=== PATIENT | male | born 1955 | race Hispanic/Latino ===

== ENCOUNTER 2024-09-01 21:37 | Emergency (ER) | payer OTHER, MEDICARE ==
--- OUTSIDE RECORDS SUMMARY | 2024-09-01 21:40 | XMS REPORT | Clinical Summary ---
Author Name Unknown Organization [facility] [place] Address [address] [place] [address] Care Team Providers Care Log Cooker Name Role Phone Lorne Echevarria MD Unavailable Sinan Arias MD Primary Care Provider [phone] Allergies No known active allergies Medications No known medications Active Problems No known active problems Social History Tobacco Use Types Packs/Day Years Used Date Smoking Tobacco: Never Smokeless Tobacco: Never Tobacco Cessation:Counseling Given: Not Answered Sex and Gender Information Value Date Recorded Sex Assigned at Not on file 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 Gender Identity Not on file Sexual Orientation Not on file Obstetrics History Plan of Treatment Health Maintenance Due Date Last Done Comments Pneumococcal Vaccine: 65+ Ye ars (2 of 2 - PCV) 08/07/2020 08/07/2019 COVID-19 Vaccine ( season) 2024, 12/15/2020 Influenza Vaccine (#1) 2024 Insurance MEDICARE PART A AND B AARP-SECONDARY ONLY MEDICARE PART A AND B AARP-SECONDARY ONLY Care Teams Log Cooker Relationship Specialty [place] [address] [place] [address] PCP - External Referring Dermatology 11/07/22 Sinan Arias MD [address] [place] [address] [email or web address] PCP - General Dermatology 11/13/22
[2024-09-01 23:55] LABS: Absolute Basophils 0.1 K/uL (0-0.5); Absolute Eosinophils 0.1 K/uL (0-0.5); Absolute Lymphocytes (CBC) 1.4 K/uL (0.7-4.9); Absolute Monocytes 1.5 K/uL (0.1-1.3); Absolute Neutrophil 13.9 K/uL (1.8-8.0); Basophils % 0.5 % (0-1.3); Eosinophils % 0.7 % (0-4.4); Hematocrit 36.5 % (39.6-49.0); Hemoglobin 12.2 g/dL (13.6-17.9); Lymphocytes % 8.3 % (15.3-44.8); MCH 29.5 pg (27.0-35.0); MCHC 33.4 g/dL (32.0-36.0); MCV 88.3 fL (80-100); MPV 7.5 fL (7.6-11.3); Monocytes % 8.9 % (3.3-12.3); Neutrophils % 81.6 % (41.7-73.7); Platelets 274 thou/uL (152-406); RBC Red Blood Cell Count 4.14 M/uL (4.33-5.43); Red Cell Distribution Width 13.5 % (12.1-15.2)
[2024-09-01 23:57] LABS: Specific Gravity 1.013 (1.005-1.030); Sqamous Epithelial <5 /HPF (None Seen); Urine Bacteria <20 /HPF (<20); Urine Bilirubin NEGATIVE (Negative); Urine Blood 1+ (Negative); Urine Clarity Extremely Turbid (Clear); Urine Color Yellow (Yellow); Urine Culture Reflex Order REFLEXED; Urine Glucose NEGATIVE (Negative); Urine Ketones NEGATIVE (Negative); Urine Microscopic Reflex YN ORDER UMIC; Urine Nitrite NEGATIVE (Negative); Urine Protein 1+ (Negative); Urine Urobilinogen 1+ (Normal); Urine WBC >50 /HPF (<5); Urine WBC Clump Occasional /HPF (None Seen)
[2024-09-02 00:10] LABS: Albumin 3.4 g/dL (3.4-5.0); Albumin/Globulin Ratio 0.9 (1.1-1.8); Anion Gap 9.3 mEq/L (5.0-15.0); Bilirubin Total 0.9 mg/dL (0.2-1.0); Globulin 3.7 g/dL (2.3-3.5); Potassium 3.3 mEq/L (3.5-5.1); Protein, Total 7.1 g/dL (6.4-8.2)
[2024-09-02] MEDS ORDERED: Levofloxacin500mg IV 500 MG/100 ML BAG IV ONE (00:29)
[2024-09-02] MEDS ORDERED: NA CHLORIDE 0.9% 1,000 ML ONE (00:29)
--- NOTE | 2024-09-02 01:20 | ER ---
Nurse's Notes [facility] Name: Mike Enciso Age: 69 yrs Sex: Male : 1955 Arrival Date: 09/01/2024 Time: 21:37 Bed 14 Private MD: Diagnosis: UTI/ Urinary tract infection, site not specified Presentation: 09/01 22:12 Chief complaint: Spouse and/or significant other states: He was here 3 months ago with vc1 the same symptoms. He had a UTI and they placed a quan. They just removed the quan 3 weeks ago. Now he can't pee again and was running a 101.1 fever. Coronavirus screen: Client denies travel out of the [place] in the last 14 days. At this time, the client does not indicate any symptoms associated with coronavirus-19. Ebola Screen: Patient negative for fever greater than or equal to 101.5 degrees Fahrenheit, and additional compatible Ebola Virus Disease symptoms Patient denies exposure to infectious person. Patient denies travel to an Ebola-affected area in the 21 days before illness onset. No symptoms or risks identified at this time. Initial Sepsis Screen: Does the patient meet any 2 criteria? No. Patient's initial sepsis screen is negative. Does the patient have a suspected source of infection? No. Patient's initial sepsis screen is negative. Risk Assessment: Do you want to hurt yourself or someone else? Patient reports no desire to harm self or others. Onset of symptoms was September 01, 2024. 22:12 Method Of Arrival: Wheelchair vc1 22:12 Acuity: DARIAN 3 vc1 Triage Assessment: 22:19 General: Appears in no apparent distress. uncomfortable, slender, well groomed, well vc1 developed, well nourished, Behavior is calm, cooperative, flat. Pain: Complains of pain in suprapubic area Pain does not radiate. Pain currently is 6 out of 10 on a pain scale. Quality of pain is described as pressure, Is continuous. EENT: No deficits noted. No signs and/or symptoms were reported regarding the EENT system. Neuro: Level of Consciousness is awake, alert, obeys commands, Oriented to person, place, time, situation, Appropriate for age. Cardiovascular: No deficits noted. Respiratory: Airway is patent Respiratory effort is even, unlabored, Respiratory pattern is regular, symmetrical, Breath sounds are clear bilaterally. GI: Abdomen is flat, non-distended, Abd is soft Abdomen is tender to palpation in suprapubic area. : Bladder is distended Reports inability to void. Derm: Skin is intact, is healthy with good turgor, Skin is dry, Skin is normal, Skin temperature is warm. Musculoskeletal: Circulation, motion, and sensation intact. Range of motion: intact in all extremities. Historical: - Allergies: 22:17 No Known Allergies; vc1 - PMHx: 22:17 peripheral neuropathy; urinary retention; vc1 - PSHx: 22:17 procedure for urinary retention; vc1 - Immunization history:: Client reports receiving the 2nd dose of the Covid vaccine, Flu vaccine is not up to date. - Infectious Disease History:: Denies. - Social history:: Smoking status: Patient denies any tobacco usage or history of. Screenin:18 [facility] ED Fall Risk Assessment (Adult) History of falling in the last 3 months, vc1 including since admission No falls in past 3 months (0 pts) Confusion or Disorientation Yes (5 pts) Intoxicated or Sedated Impaired Gait Yes (1 pt) Mobility Assist Device Used Yes (1 pt) Altered Elimination Yes (1 pt) Score/Fall Risk Level 3 or more points = High Risk Oriented to surroundings, Maintained a safe environment, Educated pt \T\ family on fall prevention, incl call for assistance when getting out of bed, Hourly rounding (assess needs \T\ fall precautionary measures) done, Utilized family, sitter, or virtual automotive maintenance technician as indicated. Abuse screen: Denies threats or abuse. Nutritional screening: No deficits noted. Tuberculosis screening: No symptoms or risk factors identified. Assessment: 22:00 General: Appears in no apparent distress. comfortable, Behavior is calm, cooperative, jb4 appropriate for age. Pain: Complains of pain in suprapubic area Pain does not radiate. Pain currently is 6 out of 10 on a pain scale. Neuro: Level of Consciousness is awake, alert, obeys commands, Oriented to person, place, time, situation. Cardiovascular: Patient's skin is warm and dry. Respiratory: Airway is patent Respiratory effort is even, unlabored, Respiratory pattern is regular, symmetrical. Derm: Skin is intact, Skin is pink, warm \T\ dry. Musculoskeletal: Circulation, motion, and sensation intact. Range of motion: intact in all extremities. 23:00 Reassessment: Patient appears in no apparent distress at this time. Patient and/or jb4 family updated on plan of care and expected duration. Pain level reassessed. Patient is alert, oriented x 3, equal unlabored respirations, skin warm/dry/pink. 09/02 00:00 Reassessment: Patient appears in no apparent distress at this time. Patient and/or jb4 family updated on plan of care and expected duration. Pain level reassessed. Patient is alert, oriented x 3, equal unlabored respirations, skin warm/dry/pink. 01:00 Reassessment: Patient appears in no apparent distress at this time. Patient and/or jb4 family updated on plan of care and expected duration. Pain level reassessed. Patient is alert, oriented x 3, equal unlabored respirations, skin warm/dry/pink. 01:38 Reassessment: D/c pending completion of IV fluids. jb4 Vital Signs: 09/01 22:00 BP 135 / 72; Pulse 82; Resp 16; Pulse Ox 96% on R/A; jb4 22:12 BP 140 / 74; Pulse 83; Resp 18; Temp 99.1; Pulse Ox 98% ; Weight 89.81 kg; Height 5 ft. vc1 8 in. ; Pain 6/10; 23:46 BP 122 / 70; Pulse 73; Resp 16; Pulse Ox 96% on R/A; jb4 09/02 01:00 BP 129 / 65; Pulse 78; Resp 16; Pulse Ox 96% on R/A; jb4 02:17 BP 133 / 73; Pulse 93; Resp 16; Temp 99.3(O); Pulse Ox 98% on R/A; jb4 09/01 22:12 Body Mass Index 30.11 (89.81 kg, 172.72 cm) vc1 22:12 Pain Scale: Adult vc1 ED Course: 09/01 21:39 Patient arrived in ED. mr 21:42 [facility] sb4 21:42 Scott Gamboa MD is Attending Physician. sb4 22:17 Triage completed. vc1 22:18 Arm band placed on right wrist. vc1 22:19 Patient has correct armband on for positive identification. Bed in low position. Call vc1 light in reach. Adult w/ patient. Pulse ox on. NIBP on. 23:05 CBC with Diff Sent. jb4 23:05 CMP Sent. jb4 23:46 Vincent Farrell, RN is Primary Nurse. jb4 09/02 01:19 Kayden Piedra MD is Referral Physician. sb4 02:16 No provider procedures requiring assistance completed. IV discontinued, intact, jb4 bleeding controlled, No redness/swelling at site. Pressure dressing applied. Administered Medications: 00:15 CANCELLED (Physician Discretion): [id number] mg 200 ml IVPB once over 60 mins sb4 00:33 Drug: levofloxacin IVPB 500 mg 100 ml IVPB once over 60 mins Volume: 100 ml; Route: jb4 IVPB; Infused Over: 60 mins; Site: right antecubital; 01:33 Follow up: Response: No adverse reaction; IV Status: Completed infusion; IV Intake: jb4 100ml 00:33 Drug: NS 0.9% IV 1000 ml IV at 1 bolus Per protocol; to be given as a bolus over 60 jb4 minutes Route: IV; Rate: 1 bolus; Site: right antecubital; 02:17 Follow up: Response: No adverse reaction; IV Status: Completed infusion; IV Intake: jb4 1000ml Medication: 09/01 22:20 VIS not applicable for this client. vc1 Intake: 09/02 01:33 IV: 100ml; Total: 100ml. jb4 02:17 IV: 1000ml; Total: 1100ml. jb4 Outcome: 01:19 Discharge ordered by . sb4 02:16 Discharged to home ambulatory, with family, jb4 02:16 Condition: stable 02:16 Discharge instructions given to patient, Instructed on discharge instructions, follow up and referral plans. medication usage, straight cath setup and insertion Demonstrated understanding of instructions, follow-up care, medications, straight cath set up and insertion Prescriptions given X 1, 02:17 Patient left the ED. jb4 Signatures: Teresa Eldridge, Matias Salcedo mr Vincent Farrell, RN RN jb4 Delia June RN RN vc1 Yue Steen PA-C PA-C sb4
--- NOTE | 2024-09-02 01:20 | EDPHYS ---
Physician Documentation [facility] Name: Mike Enciso Age: 69 yrs Sex: Male : 1955 Arrival Date: 09/01/2024 Time: 21:37 Bed 14 Private MD: ED Physician Scott Gamboa HPI: 09/01 22:51 This 69 yrs old Male presents to ER via Wheelchair with complaints of Fever, sb4 Urinary Problem, confusion. 22:51 reports confusion, lower abdominal pain, and fever since yesterday. States that sb4 symptoms are similar to when he had urinary retention and a UTI. States that he had this happen a few months ago and required indwelling Sauceda catheter and antibiotics through PICC line. States that he has been urinating, just small amounts. Denies any nausea or vomiting. Historical: - Allergies: 22:17 No Known Allergies; vc1 - PMHx: 22:17 peripheral neuropathy; urinary retention; vc1 - PSHx: 22:17 procedure for urinary retention; vc1 - Immunization history:: Client reports receiving the 2nd dose of the Covid vaccine, Flu vaccine is not up to date. - Infectious Disease History:: Denies. - Social history:: Smoking status: Patient denies any tobacco usage or history of. ROS: 22:51 Skin: Negative for injury, rash, and discoloration, sb4 22:51 Constitutional: Positive for fever, 22:51 Abdomen/GI: Positive for abdominal pain, 22:51 : Positive for pelvic pain, small amounts, 22:51 All other systems are negative, Exam: 22:51 Constitutional: This is a well developed, well nourished patient who is awake, alert, sb4 and in no acute distress. Head/Face: Normocephalic, atraumatic. Eyes: Extra-ocular motions intact. Periorbital areas with no swelling, redness, or edema. ENT: Mucous membranes moist. Cardiovascular: Regular rate and rhythm with a normal S1 and S2. Respiratory: No increased work of breathing, no retractions or nasal flaring. Abdomen/GI: Soft, non-tender, no distension. Skin: Warm, dry with normal turgor. Normal color with no rashes, no lesions, and no evidence of cellulitis. Vital Signs: 22:00 BP 135 / 72; Pulse 82; Resp 16; Pulse Ox 96% on R/A; jb4 22:12 BP 140 / 74; Pulse 83; Resp 18; Temp 99.1; Pulse Ox 98% ; Weight 89.81 kg; Height 5 ft. vc1 8 in. ; Pain 6/10; 23:46 BP 122 / 70; Pulse 73; Resp 16; Pulse Ox 96% on R/A; jb4 12 01:00 BP 129 / 65; Pulse 78; Resp 16; Pulse Ox 96% on R/A; jb4 02:17 BP 133 / 73; Pulse 93; Resp 16; Temp 99.3(O); Pulse Ox 98% on R/A; jb4 09/01 22:12 Body Mass Index 30.11 (89.81 kg, 172.72 cm) vc1 22:12 Pain Scale: Adult vc1 MDM: 09/01 21:55 Medical Screening Exam initiated sb4 09/02 00:55 Data reviewed: vital signs, nurses notes, lab test result(s), radiologic studies, and sb4 as a result, I will discharge patient. Counseling: I had a detailed discussion with the patient and/or guardian regarding the historical points, exam findings, and any diagnostic results supporting the discharge/admit diagnosis, lab results, to return to the emergency department if symptoms worsen or persist or if there are any questions or concerns that arise at home. 01:18 ED course: symptoms have improved. Vital signs are stable. Prior urine culture grew E. sb4 coli ESBL and he did require PICC line with IV antibiotic therapy. Will try patient on levofloxacin outpatient and will send for culture. Informed patient that we will call with any abnormal urine culture results but he is to return for any new or worsening symptoms or for any urinary retention. states they do have supplies at home to straight cath if urinary retention occurs as he has a history of this issue. Reiterated the importance of clean and sterile conditions while using the straight cath in order to prevent any further infection. 09/01 22:10 Order name: CBC with Diff; Complete Time: 23:58 sb4 09/01 22:10 Order name: CMP; Complete Time: 00:14 sb4 09/01 22:10 Order name: Urinalysis w/ reflexes; Complete Time: 23:58 sb4 09/02 00:01 Order name: Urine Culture EDDE 09/01 22:10 Order name: IV Saline Lock; Complete Time: 23:05 sb4 09/01 22:10 Order name: Labs collected and sent; Complete Time: 23:05 sb4 09/01 22:10 Order name: Bladder Scanner; Complete Time: 23:46 sb4 Administered Medications: 00:15 CANCELLED (Physician Discretion): [id number] mg 200 ml IVPB once over 60 mins sb4 00:33 Drug: levofloxacin IVPB 500 mg 100 ml IVPB once over 60 mins Volume: 100 ml; Route: jb4 IVPB; Infused Over: 60 mins; Site: right antecubital; 01:33 Follow up: Response: No adverse reaction; IV Status: Completed infusion; IV Intake: jb4 100ml 00:33 Drug: NS 0.9% IV 1000 ml IV at 1 bolus Per protocol; to be given as a bolus over 60 jb4 minutes Route: IV; Rate: 1 bolus; Site: right antecubital; 02:17 Follow up: Response: No adverse reaction; IV Status: Completed infusion; IV Intake: jb4 1000ml Disposition: 01:38 Co-signature as Attending Physician, Scott Gamboa MD I reviewed the patient's care rt provided by the Advanced Practice Provider and agree with the diagnosis and treatment plan. Disposition Summary: 09/02/24 01:19 Discharge Ordered Notes: Location: Home sb4 Problem: new sb4 Symptoms: have improved sb4 Condition: Stable sb4 Diagnosis - UTI/ Urinary tract infection, site not specified sb4 Followup: sb4 - With: Kayden Piedra MD - When: 2 - 3 days - Reason: Recheck today's complaints, Re-evaluation by your physician Followup: sb4 - With: Emergency Department - When: As needed - Reason: Fever > 102 F, Worsening of condition Discharge Instructions: - Discharge Summary Sheet sb4 - Urinary Tract Infection, Adult, [id number]-he-[id number] sb4 Forms: - Antibiotic Education sb4 - Patient Portal Instructions sb4 - Leadership Thank You Letter sb4 Prescriptions: - levofloxacin 500 mg Oral tablet - take 1 tablet ORAL route once daily for 5 days; 5 tablet; Refills: 0, Product sb4 Selection Permitted Signatures: Dis[facility] Vincent Farrell RN RN jb4 Delia June RN RN vc1 Yue Steen PA-C PA-C sb4 Scott Gamboa MD MD rt Corrections: (The following items were deleted from the chart) 09/01 22: 22:11 CBC+H.LAB.BRZ ordered. EDMS EDMS 22:11 COMPREHENSIVE METABOLIC PANEL+C.LAB.BRZ ordered. EDMS EDMS 22:11 Urinalysis+U.LAB.BRZ ordered. EDMS EDMS 09/02 00:15 00:15 Ciprofloxacin IVPB 400 mg 200 ml IVPB once over 60 mins ordered. sb4 sb4
[2024-09-02 02:27] VITALS: BP 133/73; TEMP 99.3; O2SAT 98
== END 2024-09-02 02:17 | disposition home or self-care (01) ==
LOC: ER 21:37
DX: N39.0 Urinary tract infection, site not specified (principal)
CPT/HCPCS: 96365; 96361; 87088; 85025; 81001; 87086; 36415; 80053; 99284; J7030; 87077; 87186

== ENCOUNTER 2024-10-22 15:08 | Emergency (ER) | payer OTHER, MEDICARE ==
--- OUTSIDE RECORDS SUMMARY | 2024-10-22 15:10 | XMS REPORT | Clinical Summary ---
Author Name Unknown Organization [facility] [place] Address [address] [place] [address] Care Team Providers Care Auto Body Mechanic Name Role Phone Lorne Echevarria MD Unavailable [phone] Sinan Arias MD Primary Care Provider [phone] Allergies No known active allergies Medications No known medications Active Problems No known active problems Social History Tobacco Use Types Packs/Day Years Used Date Smoking Tobacco: Never Smokeless Tobacco: Never Tobacco Cessation:Counseling Given: Not Answered Sex and Gender Information Value Date Recorded Sex Assigned at Not on file 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 [place] [address] PCP - External Referring Dermatology 11/07/22 Sinan Arias MD [address] [place] [address] [email or web address] PCP - General Dermatology 11/13/22
[2024-10-22 16:26] LABS: Absolute Basophils 0.1 K/uL (0-0.5); Absolute Eosinophils 0.1 K/uL (0-0.5); Absolute Lymphocytes (CBC) 1.4 K/uL (0.7-4.9); Absolute Neutrophil 8.7 K/uL (1.8-8.0); Basophils % 0.6 % (0-1.3); Hematocrit 39.6 % (39.6-49.0); Hemoglobin 13.2 g/dL (13.6-17.9); Lymphocytes % 12.5 % (15.3-44.8); MCH 29.4 pg (27.0-35.0); MCHC 33.4 g/dL (32.0-36.0); MCV 88.1 fL (80-100); MPV 7.8 fL (7.6-11.3); Monocytes % 8.6 % (3.3-12.3); Neutrophils % 77.3 % (41.7-73.7); Nucleated Red Blood Cells % 0.1 % (0-0); Platelets 255 thou/uL (152-406); Red Cell Distribution Width 14.8 % (12.1-15.2)
[2024-10-22 16:34] LABS: Specific Gravity 1.015 (1.005-1.030); Sqamous Epithelial None Seen /HPF (None Seen); Urine Bacteria <20 /HPF (<20); Urine Bilirubin NEGATIVE (Negative); Urine Blood 3+ (OVER) (Negative); Urine Clarity Extremely Turbid (Clear); Urine Culture Reflex Order REFLEXED; Urine Glucose NEGATIVE (Negative); Urine Ketones NEGATIVE (Negative); Urine Microscopic Reflex YN ORDER UMIC; Urine Nitrite NEGATIVE (Negative); Urine Protein 3+ (Negative); Urine RBC >50 /HPF (None Seen); Urine Urobilinogen Normal (Normal); Urine WBC >50 /HPF (<5); Urine pH 7.5 (5.0-7.0)
[2024-10-22 16:36] LABS: Urine Color Red (Yellow)
[2024-10-22 16:46] LABS: Albumin 3.6 g/dL (3.4-5.0); Albumin/Globulin Ratio 1.1 (1.1-1.8); Anion Gap 9.9 mEq/L (5.0-15.0); Bilirubin Total 0.6 mg/dL (0.2-1.0); Globulin 3.4 g/dL (2.3-3.5)
[2024-10-22 16:47] LABS: Magnesium 2.2 mg/dL (1.6-2.4); Potassium 3.9 mEq/L (3.5-5.1)
[2024-10-22] MEDS ORDERED: CEFTRIAXONE 2000 MG/VIAL ONE (16:49)
[2024-10-22] MEDS ORDERED: NA CHLORIDE 0.9% 50 ML ONE (16:50)
[2024-10-22] MEDS ORDERED: Levofloxacin500mg IV 500 MG/100 ML BAG IV ONE (16:57)
--- NOTE | 2024-10-22 17:26 | ER ---
Nurse's Notes [facility] Name: Mike Enciso Age: 69 yrs Sex: Male : 1955 Arrival Date: 10/22/2024 Time: 15:08 Bed 5 Private MD: Diagnosis: Hematuria, unspecified;UTI/ Urinary tract infection, site not specified Presentation: 10/22 15:13 Chief complaint: Patient states: Blood in urine, urgency and frequency that started rs5 this morning. Coronavirus screen: At this time, the client does not indicate any symptoms associated with coronavirus-19. Ebola Screen: No symptoms or risks identified at this time. Initial Sepsis Screen: Does the patient meet any 2 criteria? No. Patient's initial sepsis screen is negative. Does the patient have a suspected source of infection? No. Patient's initial sepsis screen is negative. Risk Assessment: Do you want to hurt yourself or someone else? Patient reports no desire to harm self or others. Onset of symptoms was October 22, 2023. 15:13 Method Of Arrival: Wheelchair rs5 15:13 Acuity: DARIAN 3 rs5 Historical: - Allergies: 15:16 No Known Allergies; rs5 - PMHx: 15:16 urinary retention; peripheral neuropathy; rs5 - PSHx: 15:16 procedure for urinary retention; rs5 - Immunization history:: Adult Immunizations up to date. - Infectious Disease History:: Denies. - Social history:: Smoking status: Patient denies any tobacco usage or history of. Screenin:[facility] ED Fall Risk Assessment (Adult) History of falling in the last 3 months, tm6 including since admission No falls in past 3 months (0 pts) Confusion or Disorientation No (0 pts) Intoxicated or Sedated No (0 pts) Impaired Gait No (0 pts) Mobility Assist Device Used No (0 pt) Altered Elimination No (0 pt) Score/Fall Risk Level 0 - 2 = Low Risk Oriented to surroundings, Maintained a safe environment, Educated pt \T\ family on fall prevention, incl call for assistance when getting out of bed. Abuse screen: Denies threats or abuse. Denies injuries from another. Nutritional screening: No deficits noted. Tuberculosis screening: No symptoms or risk factors identified. Assessment: 15:30 General: Appears in no apparent distress. Behavior is calm, cooperative. Pain: Denies tm6 pain. Neuro: Level of Consciousness is awake, alert, obeys commands, Oriented to person, place, time, situation. Cardiovascular: Patient's skin is warm and dry. Respiratory: Airway is patent Respiratory effort is even, unlabored, Respiratory pattern is regular, symmetrical. GI: No signs and/or symptoms were reported involving the gastrointestinal system. Abdomen is round non-distended. : Reports urgency, urinary frequency, blood in urine. EENT: No signs and/or symptoms were reported regarding the EENT system. Derm: No signs and/or symptoms reported regarding the dermatologic system. Musculoskeletal: No signs and/or symptoms reported regarding the musculoskeletal system. 16:46 Reassessment: bladder scan post void 70 mL. ld1 17:02 Reassessment: Patient and/or family updated on plan of care and expected duration. Pain tm6 level reassessed. Patient is alert, oriented x 3, equal unlabored respirations, skin warm/dry/pink. 17:27 Reassessment: discharge pending completion of IV antibiotics. tm6 18:06 Reassessment: Patient and/or family updated on plan of care and expected duration. Pain tm6 level reassessed. Patient is alert, oriented x 3, equal unlabored respirations, skin warm/dry/pink. Vital Signs: 15:13 BP 132 / 70; Pulse 74; Resp 17; Pulse Ox 97% on R/A; rs5 17:02 BP 130 / 73; Pulse 73; Temp 98.5(O); Pulse Ox 97% on R/A; MAP 90 mmHg; Pain 0/10; tm6 18:06 BP 146 / 92; Pulse 77; Resp 17; Temp 98.5; Pulse Ox 99% on R/A; MAP 107 mmHg; Pain 0/10;tm6 17:02 Pain Scale: Adult tm6 18:06 Pain Scale: Adult tm6 ED Course: 15:09 Patient arrived in ED. mr 15:11 Franck Ponce MD is Attending Physician. bo1 15:16 Triage completed. rs5 15:21 Greg Castillo RN is Primary Nurse. tm6 15:30 Patient has correct armband on for positive identification. Bed in low position. Call tm6 light in reach. Side rails up X 1. Provided Education on: use of call cueto. Client placed on continuous cardiac and pulse oximetry monitoring. NIBP monitoring applied. Pulse ox on. NIBP on. Door closed. Noise minimized. 16:18 Inserted saline lock: 20 gauge in right antecubital area, using aseptic technique. tm6 Blood collected. Flushed with 10 mL NS. 16:19 Magnesium Sent. tm6 16:19 CBC with Diff Sent. tm6 16:19 CMP Sent. tm6 16:19 Urinalysis w/ reflexes Sent. tm6 18:06 No provider procedures requiring assistance completed. IV discontinued, intact, tm6 bleeding controlled, No redness/swelling at site. Pressure dressing applied. 18:07 Arm band placed on. tm6 Administered Medications: 16:54 Not Given (Physician Discretion): rocephin2 grams IV at bolus once; Given slow IV push tm6 per [employer] instructions 17:02 Drug: levofloxacin IVPB 500 mg 100 ml IVPB once over 60 mins Volume: 100 ml; Route: tm6 IVPB; Infused Over: 60 mins; Site: right antecubital; 18:06 Follow up: Response: No adverse reaction; IV Status: Completed infusion; IV Intake: tm6 100ml Medication: 15:30 VIS not applicable for this client. tm6 Intake: 18:06 IV: 100ml; Total: 100ml. tm6 Outcome: 17:26 Discharge ordered by . bo1 18:06 Discharged to home via wheelchair, with family, tm6 18:06 Condition: stable 18:06 Discharge instructions given to patient, family, Instructed on discharge instructions, follow up and referral plans. medication usage, Demonstrated understanding of instructions, follow-up care, medications, Prescriptions given X 1, 18:07 Patient left the ED. tm6 Addendum: 10/24/2024 07:19 Addendum: Culture Results: Positive urine culture. No further action required. Bacteria e b sensitive to prescribed antibiotic. Signatures: Teresa Eldridge, Matias Salcedo mr StoutKatelyn Lauren, RN RN ld1 Buzz Jennings, SHERWIN RN rs5 Greg Castillo RN RN tm6 Rosario, MD TAMIA Juárez bo1
--- NOTE | 2024-10-22 17:26 | EDPHYS ---
Physician Documentation [facility] Name: Mike Enciso Age: 69 yrs Sex: Male : 1955 Arrival Date: 10/22/2024 Time: 15:08 Bed 5 Private MD: ED Physician Franck Ponce HPI: 10/22 15:44 This 69 yrs old Male presents to ER via Wheelchair with complaints of Urinary bo1 Problem. 15:44 Blood in the urine since 5am today. Onset: The symptoms/episode began/occurred bo1 suddenly, this morning. Severity of symptoms: At their worst the symptoms were mild. The patient has not experienced similar symptoms in the past. No prior hx or cause. 17:08 Pt's spouse is historian as well. bo1 Historical: - Allergies: 15:16 No Known Allergies; rs5 - PMHx: 15:16 urinary retention; peripheral neuropathy; rs5 - PSHx: 15:16 procedure for urinary retention; rs5 - Immunization history:: Adult Immunizations up to date. - Infectious Disease History:: Denies. - Social history:: Smoking status: Patient denies any tobacco usage or history of. ROS: 17:06 Constitutional: Negative for fever, chills, and weight loss bo1 17:06 Constitutional: Positive for Nightly sweats for the past 6 months, Negative for chills, fever, 17:06 Cardiovascular: Negative for chest pain, 17:06 Respiratory: Negative for cough, shortness of breath, 17:06 Abdomen/GI: Negative for abdominal pain, nausea and vomiting, 17:06 : Positive for hematuria, burning with urination, Negative for penile pain, testicular pain 17:06 Skin: Negative for Skin lesions to the back, 17:06 All other systems are negative, Exam: 17:08 Constitutional: This is a well developed, well nourished patient who is awake, alert, bo1 and in no acute distress. 17:08 Head/face: Exam is negative for acute changes, Healed right lower eye area from a removed skin lesion. 17:08 Neck: External neck: is normal, no acute changes, 17:08 Cardiovascular: Rate: normal, Rhythm: regular, Pulses: no pulse deficits are appreciated, 17:08 Respiratory: the patient does not display signs of respiratory distress, Respirations: normal, no acute changes, Breath sounds: are clear throughout, 17:08 Abdomen/GI: Inspection: abdomen appears normal, Palpation: abdomen is soft and non-tender, 17:08 Back: CVA tenderness, is absent, 17:08 : Male external genitalia: normal, no tenderness, Bladder: is normal, 17:08 Skin: Clayton nevi present. 17:08 Neuro: Orientation: is normal, appropriate for stated age, no acute changes, Mentation: is normal, appropriate for stated age, no acute changes, 17:12 Constitutional: The patient appears in no acute distress, alert, awake, comfortable, bo1 non-toxic, Vital Signs: 15:13 BP 132 / 70; Pulse 74; Resp 17; Pulse Ox 97% on R/A; rs5 17:02 BP 130 / 73; Pulse 73; Temp 98.5(O); Pulse Ox 97% on R/A; MAP 90 mmHg; Pain 0/10; tm6 18:06 BP 146 / 92; Pulse 77; Resp 17; Temp 98.5; Pulse Ox 99% on R/A; MAP 107 mmHg; Pain 0/10;tm6 17:02 Pain Scale: Adult tm6 18:06 Pain Scale: Adult tm6 MDM: 15:22 Medical Screening Exam initiated bo1 16:53 Differential Diagnosis UTI acute vs recurrent, hematuria. Data reviewed: vital signs, bo1 old medical records, lab test result(s), Prior urine culture results from Jun 2024. ED course: With bladder scanner indicating a 70mL bladder, unlikely a retention issue. He will be placed on an OP trial based on sensitivities of the urine culture from Jun 2024. 10/22 15:38 Order name: CBC with Diff; Complete Time: 16:42 bo10/22 15:38 Order name: CMP; Complete Time: 16:48 bo10/22 15:38 Order name: Urinalysis w/ reflexes; Complete Time: 16:42 bo10/22 15:38 Order name: Magnesium; Complete Time: 16:48 bo10/22 16:39 Order name: Urine Culture EDWI 10/22 15:38 Order name: IV Saline Lock; Complete Time: 16:19 bo1 10/22 15:38 Order name: Labs collected and sent; Complete Time: 16:19 bo1 01/01 15:46 Order name: Bladder Scanner; Complete Time: 16:46 bo1 Administered Medications: 16:54 Not Given (Physician Discretion): rocephin2 grams IV at bolus once; Given slow IV push tm6 per [employer] instructions 17:02 Drug: levofloxacin IVPB 500 mg 100 ml IVPB once over 60 mins Volume: 100 ml; Route: tm6 IVPB; Infused Over: 60 mins; Site: right antecubital; 18:06 Follow up: Response: No adverse reaction; IV Status: Completed infusion; IV Intake: tm6 100ml Disposition Summary: 10/22/24 17:26 Discharge Ordered Notes: Location: Home bo1 Problem: new bo1 Symptoms: have improved bo1 Condition: Stable bo1 Diagnosis - Hematuria, unspecified bo1 - UTI/ Urinary tract infection, site not specified bo1 Followup: bo1 - With: Private Physician - When: Upon discharge from the Emergency Department - Reason: Recheck today's complaints, Continuance of care Discharge Instructions: - Discharge Summary Sheet bo1 - Hematuria, Adult bo1 - Urinary Tract Infection, Adult bo1 Forms: - Medication Reconciliation Form bo1 - Antibiotic Education bo1 - Prescription Opioid Use bo1 - Patient Portal Instructions bo1 - Leadership Thank You Letter bo1 Prescriptions: - levofloxacin 500 mg Oral tablet - take 1 tablet ORAL route once daily for 10 days; 10 tablet; Refills: 0, Product bo1 Selection Permitted Signatures: Dispatcher [employer] Buzz Phelps RN RN rs5 Greg Castillo RN RN tm6 Franck Ponce MD MD bo1
[2024-10-22 20:07] VITALS: TEMP 98.5
[2024-10-22 20:10] VITALS: BP 146/92; O2SAT 99
== END 2024-10-22 18:07 | disposition home or self-care (01) ==
LOC: ER 15:08
DX: N39.0 Urinary tract infection, site not specified (principal)
CPT/HCPCS: 96365; 87088; 85025; 81001; 87086; 36415; 83735; 87077; 87186; 80053; 99284; J0696

== ENCOUNTER 2024-11-26 20:13 | Inpatient (IN) | payer OTHER, MEDICARE ==
--- OUTSIDE RECORDS SUMMARY | 2024-11-26 20:16 | XMS REPORT | Clinical Summary ---
Author Name Unknown Organization [facility] Address [address] [place] [address] Care Team Providers Care News Videographer Name Role Phone Lorne Echevarria MD Unavailable [phone] Sinan Arias MD Primary Care Provider [phone] Allergies No known active allergies Medications No known medications Active Problems No known active problems Social History Tobacco Use Types Packs/Day Years Used Date Smoking Tobacco: Never Smokeless Tobacco: Never Tobacco Cessation:Counseling Given: Not Answered Sex and Gender Information Value Date Recorded Sex Assigned at Not on file 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 Gender Identity Not on file Sexual Orientation Not on file Obstetrics History Plan of Treatment Health Maintenance Due Date Last Done Comments Pneumococcal Vaccine: 50+ Ye ars (2 of 2 - PCV) 08/07/2020 08/07/2019 COVID-19 Vaccine ( season) 2024, 12/15/2020 Influenza Vaccine (#1) 2024 Insurance MEDICARE PART A AND B MEDICARE PART A AND B Care Teams News Videographer Relationship Specialty [place] [id number] [facility] [address] [address] PCP - External Referring Dermatology 11/07/22 Sinan Arias MD [address] [place] [address] [email or web address] PCP - General Dermatology 11/13/22
[2024-11-26 22:34] LABS: Specific Gravity 1.024 (1.005-1.030); Sqamous Epithelial <5 /HPF (None Seen); Urine Bacteria <20 /HPF (<20); Urine Bilirubin NEGATIVE (Negative); Urine Blood 2+ (Negative); Urine Clarity Extremely Turbid (Clear); Urine Color Yellow (Yellow); Urine Crystals Unidentified Few /HPF (None Seen); Urine Culture Reflex Order REFLEXED; Urine Glucose NEGATIVE (Negative); Urine Ketones 1+ (Negative); Urine Microscopic Reflex YN ORDER UMIC; Urine Mucus 2+ /HPF (None Seen); Urine Nitrite NEGATIVE (Negative); Urine Protein 1+ (Negative); Urine Urobilinogen 1+ (Normal); Urine WBC >50 /HPF (<5); Urine WBC Clump Occasional /HPF (None Seen); Urine Yeast (Budding) Trace /HPF (None Seen)
[2024-11-26 23:15] LABS: Absolute Basophils 0.1 K/uL (0-0.5); Absolute Lymphocytes (CBC) 0.8 K/uL (0.7-4.9); Absolute Monocytes 1.2 K/uL (0.1-1.3); Basophils % 0.5 % (0-1.3); Eosinophils % 0.1 % (0-4.4); Hematocrit 37.6 % (39.6-49.0); Hemoglobin 12.5 g/dL (13.6-17.9); Lymphocytes % 4.5 % (15.3-44.8); MCH 29.5 pg (27.0-35.0); MCHC 33.4 g/dL (32.0-36.0); MCV 88.3 fL (80-100); MPV 7.7 fL (7.6-11.3); Monocytes % 6.9 % (3.3-12.3); Platelets 238 thou/uL (152-406); RBC Red Blood Cell Count 4.26 M/uL (4.33-5.43); Red Cell Distribution Width 14.5 % (12.1-15.2)
[2024-11-26] MEDS ORDERED: ACETAMINOPHEN 325 MG TABLET ONE (23:20)
[2024-11-26 23:26] LABS: Albumin 3.4 g/dL (3.4-5.0); Albumin/Globulin Ratio 0.9 (1.1-1.8); Anion Gap 9.5 mEq/L (5.0-15.0); Bilirubin Total 0.9 mg/dL (0.2-1.0); Globulin 3.7 g/dL (2.3-3.5); Potassium 3.5 mEq/L (3.5-5.1); Protein, Total 7.1 g/dL (6.4-8.2)
[2024-11-27 00:39] LABS: Band Neutrophils 23 % (0-1); Differential Total Cells Count 100; Lymphocytes 5 % (15-42); Monocytes 2 % (0-10); Segmented Neutrophils 70 % (40-80)
[2024-11-27 00:40] LABS: Blood Morphology Comment NOT SEEN (NOT SEEN); Platelet Estimate ADEQ
--- NOTE | 2024-11-27 01:30 | RAD REPORT ---
EXAM DESCRIPTION: Abdomen Pelvis W Contrast CLINICAL HISTORY: ABD PAIN COMPARISON: 07/15/2024 TECHNIQUE: CT of the abdomen and pelvis performed following the administration of IV contrast. No ora l contrast. This exam was performed according to our departmental dose-optimization program, which includes automated exposure control, adjustment of the mA and/or kV according to patient size and/or use of iterative reconstruction technique. FINDINGS: Lung Bases: No basilar consolidation. Abdomen: Liver: The liver has normal contour and density. No suspicious mass. Gallbladder: No calcified gallstones. No significant biliary dilatation. Spleen, Pancreas, and Adrenal Glands: The spleen, pancreas, and adrenal glands are unremarkable. Kidneys: No suspicious mass. No urinary tract calculi. No hydronephrosis. Vasculature: The aorta and IVC have normal caliber and position. The portal vein is patent. The pro ximal visceral and renal arteries are patent. Stomach: The stomach and duodenum have normal course. Other: No free intraperitoneal air. No significant lymphadenopathy. Pelvis: Bladder: Diffuse bladder wall thickening, most pronounced involving the posterior left bladder dive rticulum with associated wall enhancement and adjacent fat stranding. Smaller diverticulum is noted anteriorly along the bladder dome. Bowel: No dilated loops of large or small bowel. Moderate stool in the colon. Appendix: Normal appendix. Pelvis: Enlarged prostate gland. Small fat-containing right inguinal hernia. Bilateral hydroceles. Bones: No destructive bone lesions identified. IMPRESSION: 1. Diffuse bladder wall thickening, most pronounced involving the posterior left bladder diverticul um with associated wall enhancement and adjacent fat stranding. Findings may be due to cystitis, possibly superimposed on chronic urinary outlet obstruction. Correlate with urinalysis. 2. Enlarged prostate gland. 3. Bilateral hydroceles. Electronically signed by: Sherrell Yan MD 11/27/2024 01:26 AM [facility] Due to temporary technical issues with the PACS/Fitfu reporting system, reports are being javier d by the in-house radiologist without review as a courtesy to ensure prompt reporting the interpreting radiologist is fully responsible for the content of the report. Transcribed Date/Time: 11/27/2024 1:29 AM
[2024-11-27] MEDS ORDERED: NA CHLORIDE 0.9% 50 ML ONE (01:43)
[2024-11-27] MEDS ORDERED: CEFTRIAXONE 1000 MG/VIAL ONE (01:43)
--- NOTE | 2024-11-27 01:50 | ER ---
Nurse's Notes [facility] Name: Mike Enciso Age: 69 yrs Sex: Male : 1955 Arrival Date: 11/26/2024 Time: 20:13 Bed 5 Private MD: Diagnosis: UTI/ Urinary tract infection, site not specified Presentation: 11/26 21:24 Chief complaint: Patient states: Quan catheter was removed 3 days ago by urologist and cm10 yesterday pt started having urinary incontinence and burning with urination. Coronavirus screen: Client denies travel out of the [place] in the last 14 days. Ebola Screen: No symptoms or risks identified at this time. Initial Sepsis Screen: Does the patient meet any 2 criteria? No. Patient's initial sepsis screen is negative. Does the patient have a suspected source of infection? No. Patient's initial sepsis screen is negative. Risk Assessment: Do you want to hurt yourself or someone else? Patient reports no desire to harm self or others. Onset of symptoms was November 26, 2024. 21:24 Method Of Arrival: Wheelchair cm10 21:24 Acuity: DARIAN 3 cm10 Triage Assessment: 21:26 General: Appears in no apparent distress. comfortable, Behavior is calm, cooperative. cm10 Neuro: No deficits noted. Level of Consciousness is awake, alert, obeys commands, Oriented to person, place, time, situation, Appropriate for age. Respiratory: No deficits noted. Airway is patent Respiratory effort is even, unlabored, Respiratory pattern is regular, symmetrical. Historical: - Allergies: 21:26 No Known Allergies; cm10 - PMHx: 21:26 peripheral neuropathy; urinary retention; cm10 - PSHx: 21:26 procedure for urinary retention; cm10 - Immunization history:: Adult Immunizations up to date. - Infectious Disease History:: Denies. - Social history:: Smoking status: Patient denies any tobacco usage or history of. Screenin/06 01:38 [facility] ED Fall Risk Assessment (Adult) History of falling in the last 3 months, al5 including since admission No falls in past 3 months (0 pts) Confusion or Disorientation No (0 pts) Intoxicated or Sedated No (0 pts) Impaired Gait No (0 pts) Mobility Assist Device Used No (0 pt) Altered Elimination No (0 pt) Score/Fall Risk Level 0 - 2 = Low Risk Oriented to surroundings, Maintained a safe environment, Hourly rounding (assess needs \T\ fall precautionary measures) done. Abuse screen: Denies threats or abuse. Denies injuries from another. Nutritional screening: No deficits noted. Tuberculosis screening: No symptoms or risk factors identified. Assessment: 01:39 General: Appears in no apparent distress. comfortable, Behavior is calm, cooperative. al5 Pain: Denies pain. Neuro: Level of Consciousness is awake, alert, obeys commands, Oriented to person, place, time, situation. Cardiovascular: Capillary refill < 3 seconds Patient's skin is warm and dry. Respiratory: Airway is patent Respiratory effort is even, unlabored, Respiratory pattern is regular, symmetrical. GI: Abdomen is flat, non-distended. : Reports inability to void. EENT: No signs and/or symptoms were reported regarding the EENT system. Derm: Skin is intact, is healthy with good turgor, Skin is pink, warm \T\ dry. normal. Musculoskeletal: No signs and/or symptoms reported regarding the musculoskeletal system. 03:32 Reassessment: Patient appears in no apparent distress at this time. No changes from al5 previously documented assessment. Patient and/or family updated on plan of care and expected duration. Pain level reassessed. Patient is alert, oriented x 3, equal unlabored respirations, skin warm/dry/pink. patient admitted to ER HOLD at this time. 05:00 Reassessment: Patient appears in no apparent distress at this time. No changes from al5 previously documented assessment. Patient and/or family updated on plan of care and expected duration. Pain level reassessed. Patient is alert, oriented x 3, equal unlabored respirations, skin warm/dry/pink. 06:30 Reassessment: Patient appears in no apparent distress at this time. No changes from al5 previously documented assessment. Patient and/or family updated on plan of care and expected duration. Pain level reassessed. Patient is alert, oriented x 3, equal unlabored respirations, skin warm/dry/pink. Vital Signs: 11/26 21:24 BP 117 / 69; Pulse 89; Resp 18; Temp 100.9; Weight 89.81 kg; Height 5 ft. 8 in. ; Pain cm10 0/10; 11/27 01:38 BP 114 / 66; Pulse 72; Resp 16; Temp 99; Pulse Ox 98% on R/A; al5 02:00 BP 104 / 61; Pulse 72; Resp 16; Pulse Ox 96% on R/A; al5 02:30 BP 106 / 64; Pulse 72; Resp 15; Pulse Ox 97% on R/A; al5 03:00 BP 115 / 69; Pulse 70; Resp 15; Pulse Ox 98% on R/A; al5 03:30 BP 109 / 64; Pulse 68; Resp 16; Pulse Ox 96% on R/A; al5 04:00 BP 103 / 66; Pulse 70; Resp 14; Pulse Ox 96% on R/A; al5 04:30 BP 117 / 68; Pulse 70; Resp 14; Pulse Ox 96% on R/A; al5 05:00 BP 113 / 66; Pulse 69; Resp 15; Pulse Ox 96% on R/A; al5 05:30 BP 120 / 64; Pulse 69; Resp 15; Pulse Ox 96% on R/A; al5 06:00 BP 120 / 64; Pulse 72; Resp 15; Pulse Ox 97% on R/A; al5 06:30 BP 132 / 68; Pulse 78; Resp 14; Pulse Ox 97% on R/A; al5 11/26 21:24 Body Mass Index 30.11 (89.81 kg, 172.72 cm) cm10 11/26 21:24 Pain Scale: Adult cm10 ED Course: 11/26 20:19 Patient arrived in ED. gm2 20:21 [facility] kb 20:21 Manfred Lee MD is Attending Physician. kb 21:25 Triage completed. cm10 21:26 Arm band placed on right wrist. cm10 22:27 Radiology exam delayed due to lab results not completed at this time. (BUN/Creatinine) jc4 IV insertion attempt and/or patient not having appropriate IV at this time. 22:30 Urinalysis w/ reflexes Sent. lg3 22:39 CMP Sent. vk 22:39 CBC with Diff Sent. vk 22:39 Urine Culture Sent. vk 22:39 Initial lab(s) drawn, by me, sent to lab. Urine collected: clean catch specimen, clear. vk Inserted saline lock: 20 gauge in left antecubital area, using aseptic technique. Blood collected. Flushed with 10 mL NS. 11/27 00:03 CT Abd/Pelvis - IV Contrast Only In Process Unspecified. EDMS 01:33 Serena Centeno, RN is Primary Nurse. al5 01:38 Patient has correct armband on for positive identification. Bed in low position. Call al5 light in reach. Side rails up X 1. Provided Education on: plan of care. 01:40 No provider procedures requiring assistance completed. al5 01:49 Sha Alonzo MD is Hospitalizing Provider. rn 03:32 Quan cath inserted, using sterile technique, 16 Fr., by nd, balloon inflated, to al5 gravity drainage, patient bladder scanned, patient retaining 305 mL of urine in bladder prior to quan insertion. MD notified and aware. post quan insertion, patient released around 300 mL of clear yellow urine into quan bag. 04:27 Patient admitted, IV remains in place. al5 Administered Medications: 11/26 23:39 Drug: Acetaminophen PO 650 mg PO once Route: PO; lg3 02 02:15 Follow up: Response: No adverse reaction; Temperature is decreased al5 01:48 Drug: Rocephin IV 1 grams IV at calculated rate once; give after blood cx obtained al5 Route: IV; Rate: calculated rate; Site: left antecubital; 02:20 Follow up: Response: No adverse reaction; IV Status: Completed infusion; IV Intake: [id number] Medication: 01:39 VIS not applicable for this client. al5 Intake: 02:20 IV: 50ml; Total: 50ml. al5 Outcome: 01:49 Decision to Hospitalize by Provider. rn 04:28 Admitted to ER Hold. Please see [facility] for further documentation. al5 04:28 Condition: stable 04:28 Instructed on the need for admit, 18:11 Patient left the ED. iw Signatures: Dispatcher [employer] EDMS Lashell Patrick, ARELY-Connor WARP TYING MACHINE TENDER-CkLois Colindres RN RN iw Nieto, Roman, MD MD rn Able, Lacie, RN RN lg3 Lisa Hinojosa RN RN cm10 Mitchell, Ginger 2 Aria Hedrick Amanda, RN RN al5 Delmer James 4 Corrections: (The following items were deleted from the chart) 04:28 01:39 No provider procedures requiring assistance completed. al5 al5 04:39 01:40 Quan cath inserted, using sterile technique, 16 Fr., by me, balloon inflated, to al5 gravity drainage, patient bladder scanned, patient retaining 305 mL of urine in bladder prior to quan insertion. MD notified and aware. post quan insertion, patient released around 300 mL of clear yellow urine into quan bag al5
--- NOTE | 2024-11-27 01:50 | EDPHYS ---
Physician Documentation [facility] Name: Mike Enciso Age: 69 yrs Sex: Male : 1955 Arrival Date: 11/26/2024 Time: 20:13 Bed 5 Private MD: ED Physician Manfred Lee HPI: 11/26 21:21 This 69 yrs old Male presents to ER via Unassigned with complaints of Fever, kb Pain With Urination, Urinary Retention. 21:21 Pt is a 69 year old male who presents for dysuria, urinating small amounts, urgency and kb fever that started this morning. states pt had a quan for a month and it was removed 3 days ago. States he had a "green light" surgery because he was having trouble urinating. . Historical: - Allergies: 21:26 No Known Allergies; cm10 - PMHx: 21:26 peripheral neuropathy; urinary retention; cm10 - PSHx: 21:26 procedure for urinary retention; cm10 - Immunization history:: Adult Immunizations up to date. - Infectious Disease History:: Denies. - Social history:: Smoking status: Patient denies any tobacco usage or history of. ROS: 21:20 Constitutional: As per HPI kb Exam: 23:36 Constitutional: This is a well developed, well nourished patient who is awake, alert, kb and in no acute distress. Head/Face: Normocephalic, atraumatic. ENT: Moist Mucous membranes Cardiovascular: Regular rate Respiratory: Respirations even and unlabored. No increased work of breathing. Talking in full sentences Back: No spinal tenderness. No costovertebral tenderness. Full range of motion. Skin: Warm, dry with normal turgor. Normal color. MS/ Extremity: Pulses equal, no cyanosis. Neurovascular intact. Full, normal range of motion. Neuro: Awake and alert, GCS 15, oriented to person, place, time, and situation. 23:36 Abdomen/GI: Inspection: abdomen appears normal, Bowel sounds: normal, Palpation: mild abdominal tenderness, in the suprapubic area, 11/27 02:38 ECG was reviewed by the Attending Physician. rn Vital Signs: 11/26 21:24 BP 117 / 69; Pulse 89; Resp 18; Temp 100.9; Weight 89.81 kg; Height 5 ft. 8 in. ; Pain cm10 0/10; 11/27 01:38 BP 114 / 66; Pulse 72; Resp 16; Temp 99; Pulse Ox 98% on R/A; al5 02:00 BP 104 / 61; Pulse 72; Resp 16; Pulse Ox 96% on R/A; al5 02:30 BP 106 / 64; Pulse 72; Resp 15; Pulse Ox 97% on R/A; al5 03:00 BP 115 / 69; Pulse 70; Resp 15; Pulse Ox 98% on R/A; al5 03:30 BP 109 / 64; Pulse 68; Resp 16; Pulse Ox 96% on R/A; al5 04:00 BP 103 / 66; Pulse 70; Resp 14; Pulse Ox 96% on R/A; al5 04:30 BP 117 / 68; Pulse 70; Resp 14; Pulse Ox 96% on R/A; al5 05:00 BP 113 / 66; Pulse 69; Resp 15; Pulse Ox 96% on R/A; al5 05:30 BP 120 / 64; Pulse 69; Resp 15; Pulse Ox 96% on R/A; al5 06:00 BP 120 / 64; Pulse 72; Resp 15; Pulse Ox 97% on R/A; al5 06:30 BP 132 / 68; Pulse 78; Resp 14; Pulse Ox 97% on R/A; al5 11/26 21:24 Body Mass Index 30.11 (89.81 kg, 172.72 cm) cm10 11/26 21:24 Pain Scale: Adult cm10 MDM: 11/26 20:21 Medical Screening Exam initiated kb 11/27 00:45 Data reviewed: vital signs, nurses notes. Transition of care: After a detail discussion kb of the patient's case, care is transferred to Manfred Lee MD. 01:49 Differential diagnosis: UTI. Counseling: I had a detailed discussion with the patient rn and/or guardian regarding the historical points, exam findings, and any diagnostic results supporting the discharge/admit diagnosis, lab results, radiology results, the need for further work-up and treatment in the hospital. 11/26 21:24 Order name: CBC with Diff; Complete Time: 00:45 kb 11/26 21:24 Order name: CMP; Complete Time: 23:30 kb 11/26 21:24 Order name: Urinalysis w/ reflexes; Complete Time: 22:36 kb 11/26 22:37 Order name: Urine Culture EDMS 11/26 23:31 Order name: Manual Differential; Complete Time: 00:45 EDMS 11/26 23:54 Order name: Blood Culture Adult (2) kb 11/26 23:54 Order name: Lactate w/ 2H reflex if indic. kb 11/26 23:54 Order name: Protime (+inr) kb 11/26 23:54 Order name: Ptt, Activated kb 11/27 07:17 Order name: Basic Metabolic Panel EDMS 11/27 07:17 Order name: Basic Metabolic Panel EDMS 11/27 07:17 Order name: Basic Metabolic Panel EDMS 11/27 07:17 Order name: Basic Metabolic Panel EDMS 11/27 07:17 Order name: Basic Metabolic Panel EDMS 11/27 07:17 Order name: Basic Metabolic Panel EDMS 11/27 07:17 Order name: Basic Metabolic Panel EDMS 11/27 07:17 Order name: Basic Metabolic Panel EDMS 11/27 07:17 Order name: CBC with Automated Diff EDMS / 07:17 Order name: CBC with Automated Diff EDMS / 07:17 Order name: CBC with Automated Diff EDMS 02/ 07:17 Order name: CBC with Automated Diff EDMS 02/ 07:17 Order name: CBC with Automated Diff EDMS 02/ 07:17 Order name: CBC with Automated Diff EDMS 02/ 07:17 Order name: CBC with Automated Diff EDMS 02/ 07:17 Order name: CBC with Automated Diff EDMS 02/ 07:17 Order name: Magnesium EDMS 02/ 07:17 Order name: Magnesium EDMS 02/ 07:17 Order name: Magnesium EDMS 02/ 07:17 Order name: Magnesium EDMS 02/ 07:17 Order name: Magnesium EDMS 02/ 07:17 Order name: Magnesium EDMS 02/ 07:17 Order name: Magnesium EDMS 02/ 07:17 Order name: Magnesium EDMS 02/ 07:17 Order name: Phosphorus EDMS 02/ 07:17 Order name: Phosphorus EDMS 02/ 07:17 Order name: Phosphorus EDMS 02/ 07:17 Order name: Phosphorus EDMS 02/ 07:17 Order name: Phosphorus EDMS 02/ 07:17 Order name: Phosphorus EDMS 02/06 07:17 Order name: Phosphorus EDMS 11/27 07:17 Order name: Phosphorus EDMS 11/26 21:24 Order name: CT Abd/Pelvis - IV Contrast Only kb 11/27 07:17 Order name: Physical Therapy Consult EDMS 11/26 21:24 Order name: IV Start; Complete Time: 22:39 kb 11/26 21:24 Order name: Quan; Complete Time: 03:32 kb 11/26 22:37 Order name: Bladder Scanner; Complete Time: 03:32 kb 11/26 23:54 Order name: EKG - Nurse/Tech; Complete Time: 01:40 kb 11/26 23:54 Order name: O2 Per Protocol; Complete Time: 01:37 kb 11/26 23:54 Order name: O2 Sat Monitoring; Complete Time: 01:37 kb 11/26 23:54 Order name: Vital Signs; Complete Time: 01:38 kb EC:38 Rate is 73 beats/min. Rhythm is regular. QRS [place] is Normal. CO interval is normal. QRS rn interval is normal. QT interval is normal. No Q waves. T waves are Normal. No ST changes noted. Clinical impression: Normal ECG. Interpreted by me. Reviewed by me. Administered Medications: 11/26 23:39 Drug: Acetaminophen PO 650 mg PO once Route: PO; lg3 11/27 02:15 Follow up: Response: No adverse reaction; Temperature is decreased al5 01:48 Drug: Rocephin IV 1 grams IV at calculated rate once; give after blood cx obtained al5 Route: IV; Rate: calculated rate; Site: left antecubital; 02:20 Follow up: Response: No adverse reaction; IV Status: Completed infusion; IV Intake: [id number] Disposition Summary: 11/27/24 01:49 Hospitalization Ordered Notes: Hospitalization Status: Inpatient Admission rn Provider: Sha Alonzo rn Condition: Stable rn Problem: new rn Symptoms: have improved rn Bed/Room Type: Standard rn Location: Telemetry/MedSurg (Inpatient)(11/27/24 16:12) bc6 Room Assignment: 404(11/27/24 16:12) 6 Diagnosis - UTI/ Urinary tract infection, site not specified rn Forms: - Medication Reconciliation Form rn - SBAR form rn - Leadership Thank You Letter rn Addendum: 11/30/2024 06:59 Co-signature as Attending Physician, Manfred Lee MD I reviewed the patient's care r n provided by the Advanced Practice Provider and agree with the diagnosis and treatment plan. Signatures: Dispatcher [employer] EDMS Lashell Patrick, AUDIT REVIEWER-C AUDIT REVIEWER-Ckb Manfred Lee MD MD rn Able, Valencia RN RN lg3 Soraya Hill 1 Zahida Smith 6 Lisa Hinojosa RN RN cm10 Serena Centeno RN RN al5 Corrections: (The following items were deleted from the chart) 11/26 21:25 21:25 CBC+H.LAB.BRZ ordered. EDMS EDMS 21:25 21:25 COMPREHENSIVE METABOLIC PANEL+C.LAB.BRZ ordered. EDMS EDMS 21:25 21:25 Urinalysis+U.LAB.BRZ ordered. EDMS EDMS 23:55 23:55 BLOOD CULTURE*+BA.LAB.BRZ ordered. EDMS EDMS 23:55 23:55 LACTATE+C.LAB.BRZ ordered. EDMS EDMS 23:55 23:55 PROTIME (+INR)+COAG.LAB.BRZ ordered. EDMS EDMS 23:55 23:55 PTT, ACTIVATED+COAG.LAB.BRZ ordered. EDFL EDMS 11/27 01:53 01:49 Telemetry/MedSurg (Inpatient) rn rv1 01:53 01:49 rn rv1 16:12 01:53 BR ER HOLD [facility] bc6 16:12 01:53 ERHOLD- [facility]6
[2024-11-27 03:01] LABS: PT Prothrombin Time 13.8 SECONDS (9.4-12.5); PTT, Activated Partial Thromb 29.7 SECONDS (24.3-36.9); Protime INR 1.32
[2024-11-27] MEDS ORDERED: HYDRALAZINE HCL 20 MG/ML VIAL IV PRN (07:09)
[2024-11-27] MEDS ORDERED: ACETAMINOPHEN 325 MG TABLET PO PRN (07:09)
--- NOTE | 2024-11-27 07:29 | P.HP ---
Certification for Inpatient Patient admitted to: Inpatient With expected LOS: >2 Midnights Practitioner: I am a practitioner with admitting privileges, knowledge of patient current condition, hospital course, and medical plan of care. Services: Services provided to patient in accordance with Admission requirements found in Title 42 Section 412.3 of the Code of Federal Regulations Patient History Date of Service: 11/27/24 Reason for admission: Sepisis 2/2 UTI History of Present Illness: Mike Enciso is a 69 year old male with Pmhx peripheral neuropathy and urinary retention who presented to the ED with a fever, dysuria, and and urinary retention. He is a patient of Dr. Piedra and was recently being treated for urinary retention with a Sauceda catheter. Sauceda catheter was removed 3 days ago. He has a procedure scheduled in December in [place] for greenlight therapy. Sauceda catheter placed by ED with clear urine. Laboratory evaluation significant for WBC 18, H&H 12/37, serum glucose 161, UA suggestive of infectious process. CT abdomen pelvis report "Diffuse bladder wall thickening, most pronounced involving the posterior left bladder diverticulum with associated wall enhancement and adjacent fat stranding. Findings may be due to cystitis, possibly superimposed on chronic urinary outlet obstruction. Correlate with urinalysis. Enlarged prostate gland. Bilateral hydroceles." Chart reviewed and previous microbiology with growth of Klebsiella pneumoniae ESBL, Pseudomonas Aeruginosa, Enterococcus faecalis, and EColi ESBL Mike will be admitted to hospitalist service for further treatment of Sepsis secondary to UTI complicated by urinary retention and frequent Sauceda catheter. Allergies No Known Allergies Allergy (Verified 11/27/24 04:50) Home Medications: Gabapentin 100 mg PO BEDTIME 07/16/24 Meloxicam 15 mg PO DAILY 07/16/24 Tamsulosin [Flomax*] 1 cap PO BEDTIME 07/16/24 - Past Medical/Surgical History -: BPH -: Neuropathy -: Chronic back pain -: TURP - Family History Father -: Other (see notes) - Social History Smoking Status: Never smoker Alcohol use: Yes CD- Drugs: No Review of Systems Other: Per HPI Physical Examination - Physical Exam General: Alert, In no apparent distress, Oriented x3 HEENT: Atraumatic, Normocephalic Neck: Supple, 2+ carotid pulse no bruit Respiratory: Clear to auscultation bilaterally, Normal air movement Cardiovascular: No edema, Regular rate/rhythm, Normal S1 S2 Gastrointestinal: Normal bowel sounds, Soft and benign Musculoskeletal: No clubbing Integumentary: No rashes Neurological: Normal speech, Normal tone Urinary: Sauceda catheter - Studies Laboratory Data (last 24 hrs) 11/27/24 11/26/24 11/26/24 01:40 22:37 22:37 WBC 18.10 H Hgb 12.5 L Hct 37.6 L Plt Count 238 PT 13.8 H INR 1.32 APTT 29.7 Sodium 137 Potassium 3.5 BUN 25 H Creatinine 0.90 Glucose 161 H Total Bilirubin 0.9 AST 17 ALT 22 Alkaline Phosphatase 65 Assessment and Plan - Plan Assessment and plan Sepsis secondary to UTI complicated by urinary retention and frequent Sauceda catheter Leukocytosis -Sepsis criteria temperature 100.9, WBC 18, urinary tract infection -History of a urinary tract infection, Sauceda removed 3 days ago, replaced in the ED today -History of Klebsiella pneumoniae ESBL, Pseudomonas Aeruginosa, Enterococcus faecalis, and EColi ESBL -IV Merrem -IV fluid -Follow blood culture and urine culture -Maintain Sauceda catheter Hyperglycemia -Serum glucose 161 -Monitor in AM labs Neuropathy Chronic back pain -Continue home medication DVT PPx SCDs Full code LOS 2 to 3 days Discharge Plan: Home Plan to discharge in: 72 Hours - Advance Directives Does patient have a Living Will: No Does patient have a Durable POA for Healthcare: No
[2024-11-27] MEDS: NA CHLORIDE 0.9% 1,000 ML IV SCH (08:00)
[2024-11-27] MEDS ORDERED: NA CHLORIDE 0.9% 1,000 ML ONE (08:12)
[2024-11-27] MEDS ORDERED: Meropenem 1000 MG/VIAL IV ONE ×2 (08:12→16:55)
[2024-11-27] MEDS ORDERED: NA CHLORIDE 0.9% 100 ML ONE ×2 (08:18→16:55)
[2024-11-27] MEDS: Meropenem 1,000 MG in NA CHLORIDE 0.9% 100 ML IV SCH (08:28)
[2024-11-27 08:29] VITALS: BMI 30.2
[2024-11-28 06:52] LABS: Absolute Basophils 0.1 K/uL (0-0.5); Absolute Eosinophils 0.3 K/uL (0-0.5); Absolute Lymphocytes (CBC) 1.7 K/uL (0.7-4.9); Absolute Monocytes 0.9 K/uL (0.1-1.3); Absolute Neutrophil 7.1 K/uL (1.8-8.0); Basophils % 0.5 % (0-1.3); Eosinophils % 2.8 % (0-4.4); Hemoglobin 11.4 g/dL (13.6-17.9); Lymphocytes % 16.6 % (15.3-44.8); MCH 30.2 pg (27.0-35.0); MCHC 34.5 g/dL (32.0-36.0); MCV 87.3 fL (80-100); Monocytes % 9.1 % (3.3-12.3); Platelets 245 thou/uL (152-406); RBC Red Blood Cell Count 3.77 M/uL (4.33-5.43); Red Cell Distribution Width 14.5 % (12.1-15.2)
[2024-11-28 06:57] LABS: Anion Gap 5.4 mEq/L (5.0-15.0); Magnesium 2.3 mg/dL (1.6-2.4); Phosphorus 2.3 mg/dL (2.5-4.9); Potassium 3.4 mEq/L (3.5-5.1)
[2024-11-28] MEDS ORDERED: CEFTRIAXONE 1,000 MG in NA CHLORIDE 0.9% 50 ML IVPB SCH (09:00)
--- NOTE | 2024-11-28 11:01 | RAD REPORT ---
EXAM: Testicular/scrotal ultrasound HISTORY: Swollen testes COMPARISON: CT 11/26/2024 TECHNIQUE: Multiplanar grayscale and color Doppler images were obtained in a testicular/scrotal ultra sound. Spectral analysis of the Doppler waveforms of the testicles were performed. FINDINGS: Right testicle: Normal in echogenicity. No focal mass. Normal internal flow. Left testicle: Normal in echogenicity. No focal mass. Normal internal flow. Right epididymis. No epididymal cyst. Mildly enlarged right epididymis with increased vascularity. Left epididymis. 4 mm epididymal cyst. Normal internal flow. Small right hydrocele. A right varicocele is suspected on CT but not imaged on this exam. IMPRESSION: 1. Bilateral testicular blood flow. 2. Mildly enlarged and hypervascular right epididymis could reflect epididymitis. No abscess identifi ed. Suspect right-sided varicocele which could be contributing to the right epididymal enlargement and asymmetric flow.
[2024-11-28] MEDS: POTASSIUM CL SA 10 MEQ TAB PO ONE (12:43)
[2024-11-28] MEDS: POTASS/SODIUM PHOSPHATE 1 PKT POWD.PACK PO SCH (12:44)
--- NOTE | 2024-11-28 20:24 | P.PN ---
Date of Service: 11/28/24 Subjective Awake and eating breakfast No new complaints Following urine culture ROS 10 point ROS as noted above, otherwise negative Physical Exam General: Alert and Oriented x3, NAD HEENT: Atraumatic, Normocephalic Neck: Supple, 2+ carotid pulse no bruit Respiratory: Clear to auscultation bilaterally, Normal air movement, on RA Cardiovascular: No edema, RRR, Normal S1 S2 Gastrointestinal: bowel sounds present, Soft and benign on palpation, nontender Musculoskeletal: No clubbing Integumentary: No rashes Neurological: Normal speech, Normal tone Urinary: Sauceda catheter Vitals Reviewed Problem list Sepsis secondary to UTI complicated by urinary retention and frequent Sauceda catheter Leukocytosis Hyperglycemia Neuropathy Chronic back pain Assessment and Plan Sepsis secondary to UTI complicated by urinary retention and frequent Sauceda catheter Leukocytosis Epididymitis -Sepsis criteria temperature 100.9, WBC 18, urinary tract infection -History of a urinary tract infection, Sauceda removed 3 days ago, replaced in the ED today -History of Klebsiella pneumoniae ESBL, Pseudomonas Aeruginosa, Enterococcus faecalis, and EColi ESBL -Continue IV Merrem -IV fluid stopped -blood culture NGTD -urine culture- gram negative -Maintain Sauceda catheter -Scrotal US Bilateral testicular blood flow. Mildly enlarged and hypervascular right epididymis could reflect epididymitis. No abscess identified. Suspect rig ht-sided varicocele which could be contributing to the right epididymal enlargement and asymmetric flow. Hyperglycemia -Serum glucose 96 -Monitor in AM labs Neuropathy Chronic back pain -Continue home medication DVT PPx SCDs Full code LOS 2 to 3 days Discharge Plan: Home Plan to discharge in: 72 Hours
[2024-11-28 21:31] VITALS: O2SAT 99
[2024-11-29 06:42] LABS: Absolute Basophils 0.1 K/uL (0-0.5); Absolute Eosinophils 0.5 K/uL (0-0.5); Absolute Lymphocytes (CBC) 1.7 K/uL (0.7-4.9); Absolute Monocytes 0.8 K/uL (0.1-1.3); Absolute Neutrophil 5.4 K/uL (1.8-8.0); Basophils % 0.8 % (0-1.3); Eosinophils % 6.3 % (0-4.4); Hematocrit 37.2 % (39.6-49.0); Hemoglobin 12.6 g/dL (13.6-17.9); Lymphocytes % 19.5 % (15.3-44.8); MCH 29.8 pg (27.0-35.0); MCHC 33.9 g/dL (32.0-36.0); MCV 87.8 fL (80-100); MPV 7.5 fL (7.6-11.3); Monocytes % 9.5 % (3.3-12.3); Neutrophils % 63.9 % (41.7-73.7); Platelets 305 thou/uL (152-406); RBC Red Blood Cell Count 4.24 M/uL (4.33-5.43); Red Cell Distribution Width 14.6 % (12.1-15.2)
[2024-11-29 07:00] LABS: Magnesium 2.3 mg/dL (1.6-2.4); Phosphorus 3.1 mg/dL (2.5-4.9)
--- NOTE | 2024-11-29 09:51 | P.DS ---
Admission Date: 11/27/24 Discharge Date: 11/29/24 Disposition: ROUTINE DISCHARGE Discharge Condition: GOOD Reason for Admission: Sepisis 2/2 UTI Brief History of Present Illness: Diagnosis Sepsis secondary to UTI complicated by urinary retention and frequent Sauceda catheter Epididymitis Leukocytosis Hyperglycemia Neuropathy Chronic back pain HPI Mike Enciso is a 69 year old male with Pmhx peripheral neuropathy and urinary retention who presented to the ED with a fever, dysuria, and and urinary retention. He is a patient of Dr. Piedra and was recently being treated for urinary retention with a Sauceda catheter. Sauceda catheter was removed 3 days ago. He has a procedure scheduled in December in [place] for greenlight therapy. Sauceda catheter placed by ED with clear urine. Laboratory evaluation significant for WBC 18, H&H 12/37, serum glucose 161, UA suggestive of infectious process. CT abdomen pelvis report "Diffuse bladder wall thickening, most pronounced involving the posterior left bladder diverticulum with associated wall enhancement and adjacent fat stranding. Findings may be due to cystitis, possibly superimposed on chronic urinary outlet obstruction. Correlate with urinalysis. Enlarged prostate gland. Bilateral hydroceles." Chart reviewed and previous microbiology with growth of Klebsiella pneumoniae ESBL, Pseudomonas Aeruginosa, Enterococcus faecalis, and EColi ESBL Mike will be admitted to hospitalist service for further treatment of Sepsis secondary to UTI complicated by urinary retention and frequent Sauceda catheter. Hospital Course: Patient was admitted and treated for the following Sepsis secondary to UTI complicated by urinary retention and frequent Sauceda catheter Leukocytosis Epididymitis -Sepsis criteria temperature 100.9, WBC 18, urinary tract infection, sepsis reassessment complete and resolved -History of a urinary tract infection, Sauceda removed 3 days ago, replaced in the ED today -History of Klebsiella pneumoniae ESBL, Pseudomonas Aeruginosa, Enterococcus faecalis, and EColi ESBL - Scrotum Ultrasound reports "Bilateral testicular blood flow. Mildly enlarged and hypervascular right epididymis could reflect epididymitis. No abscess identified. Suspect right-sided varicocele which could be contributing to the right epididymal enlargement and asymmetric flow." -Tolerated and improved with IV Merrem and IVF -blood culture No Growth -urine culture- E coli sensitive to nitrofuran -Maintain Sauceda catheter with leg bag -Scrotal US Bilateral testicular blood flow. Mildly enlarged and hypervascular right epididymis could reflect epididymitis. No abscess identified. Suspect right-sided varicocele which could be contributing to the right epididymal enlargement and asymmetric flow. -Plan for Vantin and nitrofuan at discharge for 3 weeks Hyperglycemia - Serum glucose 123, mildly elevated -follow up with PCP for further management Neuropathy Chronic back pain -Continued home medication -Follow up with PCP On 11/29/24, Mike was seen on morning rounds and deemed hemodynamically stable fro discharge home with family support. Mike was prescribed vantin and nitrofuran. Plan to follow up with PCP and Dr. Piedra at discharge. Physical Exam General: AAOx3, NAD, afebrile HEENT: Atraumatic, Normocephalic Neck: Supple, 2+ carotid pulse no bruit Respiratory: Clear to auscultation bilaterally, Symmetrical chest wall movement, on RA Cardiovascular: Regular rate and rhythm, Normal S1 S2 Gastrointestinal: bowel sounds present, Soft, benign, nontender on palpation, Musculoskeletal: No clubbing Integumentary: No rashes Neurological: Normal speech, Normal tone Urinary: Sauceda catheter Vital Signs/Physical Exam: Temp Pulse Resp BP Pulse Ox 98.6 F 64 18 143/74 H 96 11/29/24 08:00 11/29/24 08:00 11/29/24 08:00 11/29/24 08:00 11/29/24 08:00 Laboratory Data at Discharge: WBC 8.50 thou/uL (4.3-10.9) 11/29/24 06:30 Hgb 12.6 g/dL (13.6-17.9) L D 11/29/24 06:30 Hct 37.2 % (39.6-49.0) L 11/29/24 06:30 Plt Count 305 thou/uL (152-406) 11/29/24 06:30 PT 13.8 SECONDS (9.4-12.5) H 11/27/24 01:40 INR 1.32 11/27/24 01:40 APTT 29.7 SECONDS (24.3-36.9) 11/27/24 01:40 Sodium 139 mEq/L (136-145) 11/29/24 06:30 Potassium 4.0 mEq/L (3.5-5.1) D 11/29/24 06:30 BUN 11 mg/dL (7-18) 11/29/24 06:30 Creatinine 0.56 mg/dL (0.70-1.30) L 11/29/24 06:30 Glucose 123 mg/dL (74-106) H 11/29/24 06:30 Phosphorus 3.1 mg/dL (2.5-4.9) 11/29/24 06:30 Magnesium 2.3 mg/dL (1.6-2.4) 11/29/24 06:30 Total Bilirubin 0.9 mg/dL (0.2-1.0) 11/26/24 22:37 AST 17 U/L (15-37) 11/26/24 22:37 ALT 22 U/L (16-61) 11/26/24 22:37 Alkaline Phosphatase 65 U/L (45-117) 11/26/24 22:37 Home Medications: Tamsulosin [Flomax*] 1 cap PO BEDTIME 07/16/24 Gabapentin 300 mg PO DAILY 11/28/24 Memantine HCl 10 mg PO BEDTIME 11/28/24 Cefpodoxime Proxetil [Vantin] 200 mg PO BID #42 tab 11/29/24 Nitrofuran Macro [Macrobid*] 100 mg PO Q6H 21 Days #84 cap 11/29/24 New Medications: Nitrofuran Macro [Macrobid*] 100 mg PO Q6H 21 Days #84 cap Cefpodoxime Proxetil [Vantin] 200 mg PO BID #42 tab Physician Discharge Instructions: 1. Please call and schedule a follow-up appointment with your PCP in 3-5 days - Please follow-up with your PCP for medication refills/adjustments 2. Please call and schedule a follow-up appointment with Dr. Piedra in one week 3. Continue regular diet 4. no activity restrictions 5. Return to the ED if symptoms worsen New medications nitrofurantoin 100 mg four times daily for 3 weeks Oral cefpodoxime 200 mg twice a day for 3 weeks. Diet: Regular Activity: Ad juanita Followup: LONNIE WHITFIELD [Primary Care Provider] -
[2024-11-29] MEDS: NITROFURAN MACRO 50 MG CAP PO SCH (17:31)
[2024-11-29 17:35] VITALS: BP 142/76; TEMP 98
[2024-11-29] MEDS: NITROFURAN MACRO 100 MG CAP PO ONE (17:46)
--- NOTE | 2024-12-02 12:57 | EKG ---
Test Date: 2024-11-27 Test Time: 01:29:25 Manager Lighting: VALENTE MEASUREMENT RESULTS: Intervals: Rate: 73 FL: 164 QRSD: 80 QT: 382 QTc: 420 [place]: P: 51 FL: 164 QRS: 62 T: 34 INTERPRETIVE STATEMENTS: Normal sinus rhythm Normal ECG Compared to ECG 07/15/2024 22:23:10 Right-axis deviation no longer present Electronically Signed On 12-02-24 12:48:45 UTILITY AIDE by Pelon Ramirez
== END 2024-11-29 18:26 | disposition home or self-care (01) | DRG 698 ==
LOC: ER 20:13 → ERHOLD 11-27 07:09 → 4TH 11-27 17:05
PROVIDERS: ADMIT Internal Medicine; ATTEND Internal Medicine
PROC: 0T9B70Z Drainage of Bladder with Drainage Device, Via Natural or Artificial Opening (ICD-10-PCS; principal; 2024-11-27)
DX: T83.518A Infection and inflammatory reaction due to other urinary catheter, initial encounter (principal); A41.9 Sepsis, unspecified organism; N39.0 Urinary tract infection, site not specified; N13.8 Other obstructive and reflux uropathy; N40.1 Benign prostatic hyperplasia with lower urinary tract symptoms; N45.1 Epididymitis; M54.9 Dorsalgia, unspecified; G89.29 Other chronic pain; R33.8 Other retention of urine; R73.9 Hyperglycemia, unspecified; Z79.899 Other long term (current) drug therapy
CPT/HCPCS: 36415; 51702; 74177; 76870; 80048; 80053; 81001; 83605; 83735; 84100; 85025; 85610; 85730; 87040; 87077; 87086; 87088; 87186; 93005; 96365; 97116; 97161; 97530; 99285; J0696; J2185; J7030; Q9967

== ENCOUNTER 2025-01-06 06:22 | Day surgery (SDC) | payer OTHER, MEDICARE ==
[2024-12-23 11:12] LABS: Absolute Basophils 0.1 K/uL (0-0.5); Absolute Eosinophils 0.9 K/uL (0-0.5); Absolute Lymphocytes (CBC) 1.9 K/uL (0.7-4.9); Absolute Monocytes 0.7 K/uL (0.1-1.3); Absolute Neutrophil 5.3 K/uL (1.8-8.0); Eosinophils % 10.2 % (0-4.4); Hematocrit 37.9 % (39.6-49.0); Lymphocytes % 21.6 % (15.3-44.8); MCHC 34.3 g/dL (32.0-36.0); MCV 87.6 fL (80-100); MPV 8.3 fL (7.6-11.3); Neutrophils % 59.2 % (41.7-73.7); Platelets 223 thou/uL (152-406); RBC Red Blood Cell Count 4.33 M/uL (4.33-5.43); Red Cell Distribution Width 14.3 % (12.1-15.2)
[2024-12-23 11:17] LABS: PT Prothrombin Time 12.2 SECONDS (10.0-13.0); Protime INR 1.07
--- NOTE | 2024-12-23 11:17 | RAD REPORT ---
EXAMINATION: TWO VIEW CHEST XR CLINICAL INDICATION: PRE OP TECHNIQUE: 2 views of the chest was performed. COMPARISON: 12/22/2020 FINDINGS: Mild linear opacities in the left lung base likely represent atelectasis. The lungs are otherwise guillermo ar. The heart is upper limit of normal in size. No displaced fractures evident.
[2024-12-23 11:24] LABS: Anion Gap 6.9 mEq/L (5.0-15.0); Potassium 3.9 mEq/L (3.5-5.1)
[2025-01-06] MEDS: Ringers Lactate 1,000 ML IV ONE (06:58)
[2025-01-06] MEDS ORDERED: ONDANSETRON 4 MG/2 ML VIAL ONE (07:04)
[2025-01-06] MEDS ORDERED: propofoL 200 MG/20 ML VIAL IV ONE (07:04)
[2025-01-06] MEDS ORDERED: MIDAZOLAM HCL 2 MG/2 ML INJ ONE (07:05)
[2025-01-06] MEDS ORDERED: FENTANYL CITR 100 MCG/2 ML ONE (07:05)
[2025-01-06] MEDS ORDERED: LIDOCAINE 1% MPF 5 ML VIAL ONE (07:06)
[2025-01-06] MEDS: GENTAMICIN 80 MG/100 ML BAG 160 MG/200 ML BAG IV ONE (07:32)
[2025-01-06] MEDS: CIPROFLOXACIN 400mg IV 400 MG/200 ML BAG IV ONE (07:43)
[2025-01-06] MEDS ORDERED: EPHEDRINE SULF 50 MG/ML VIAL ONE (07:48)
[2025-01-06] MEDS ORDERED: CODEINE 30MG/APAP 300MG TAB PO PRN (08:43)
--- NOTE | 2025-01-06 08:55 | P.OP ---
Date of Service: 01/06/25 Preoperative diagnoses: Urinary retention BPH with obstruction and LUTS History of TURP Postoperative diagnoses: Urinary retention BPH with obstruction and LUTS History of TURP Left lateral wall bladder diverticulum Erythematous lesion of bladder within diverticulum Principal procedures: Cystoscopy with bladder irrigation/washout Prostatic urethral lift/UroLift with 6 implants placed 18 [place] urethral Sauceda catheter replacement Indication for procedure: 69-year-old gentleman with dementia who presented to the urology clinic with obstructive LUTS. This progressed to retention requiring a catheter placed, and this was refractory to medical therapy given. He underwent evaluation revealing the presence of a prior TURP but some regrowth of adenoma potentially obstructing within the apical mid gland. As a result, he was counseled on options for management and elected to proceed with the UroLift as a minimally invasive option. Procedure note: The patient was consented in the preoperative holding area before being transferred to the operative suite where general anesthesia was induced. He was given ciprofloxacin 40 mg IV and gentamicin 160 mg IV antimicrobial prophylaxis, and pneumoboots were provided for DVT prophylaxis. He was placed in the lithotomy position, padded and secured to the table appropriately. His genitalia was prepped with Hibiclens and he was draped in standard fashion after the urethral Sauceda catheter indwelling was removed. The case was begun using the 20 [place] UroLift sheath and a visual obturator to traverse the urethra and into the bladder with relative ease. The previously observed adenomatous intrusion involving the apical mid gland was again observed with relative patency of the bladder neck. Upon entry into the bladder, there was some fibrinous debris owing to chronic catheterization despite patient taking ciprofloxacin starting on Sunday, several days prior. Additionally, in the left lateral wall there was a moderately sized bladder diverticulum. Within the diverticulum, there was a degree of erythema noted. There was also some fibrinous debris within the diverticulum stasis there. As a result, I utilized a 60 cc catheter tip syringe and attempted to irrigate via the scope to remove all of the fibrinous debris, filling and emptying the bladder several times via the cystoscope in order to remove all fibrinous debris and potential sources of infection prior to UroLift implantation. Once the fluid and urine was clear, I surveyed the remainder of the bladder, and no concerning papillary mucosal lesions, foreign bodies or stones were noted. As a result, I decompressed his bladder and switch the UroLift visual obturator for the first implant delivery device and an implant. The first implant was targeted at the patient's left apex where there was by lobar adenoma emanating from the left side. I targeted the inferior intruding adenoma first at around the 3 o'clock position at the level of the verumontanum, angled about 15 degrees laterally against the tissue. I pulled the trigger once deploying the needle through the substance of the prostate before compressing the tissue completely and an additional 15 degrees to ensure the tip of the needle situated outside of the capsular surface. I then pulled the trigger a second time delivering the capsular tab and beginning to retract the needle. I third pole of the trigger did completely retract the needle and began to tension the suture. I then advanced the scope back toward the midline and 2 to 3 mm toward the bladder neck opening until the white line of a monofilament was centered in the delivery bay. At this point, I pulled the trigger a fourth time delivering the urethral end piece and tailoring the suture. This did nicely retract that adenoma on the left side at the level of the verumontanum. I then advanced the scope back into the bladder and switched for a new UroLift implant which was targeted on the contralateral position at the right apex at the level of the verumontanum. After this was successfully placed, I surveyed the channel created using a visual obturator and then placed a third implant in a stacked fashion due to the bilobar aspect of the adenoma on the left side now hanging down into the urethral lumen. This third implant was placed more superior laterally at the left apex at the level of the verumontanum above the prior implant at around the 1 o'clock position. This did generate a beautiful opening at the apex and I's surveyed the channel with a visual obturator revealing some intrusion at the bladder neck from the left laterally and a slight degree of intrusion from the right inferior lateral aspect in the mid gland. As a result, I targeted the mid zone bladder neck tissue on the left initially at the 3 o'clock position placing a fourth implant there. I then surveyed the channel and elected to place a 5th implant in a static position ab ove that also on the left side in order to completely open up the channel. I then surveyed the channel created again after 5 implants were placed, and again visualized the inferior lateral lobar intrusion from the patient's right side at the mid bladder neck region, and I utilized a splint device to see if I could lateralize that tissue accordingly and create more beautiful continuous anterior channel. Once I realized this could be done, I then utilized a 6th and final implant placed within that tissue in order to completely open up the channel and give this patient the best opportunity to void without a catheter given his urinary retention. Survey of the channel created did reveal a beautiful continuous anterior channel that appeared almost like the textbook. There was some slight elevation within the mid zone of the prostate inferiorly, but this did not obstruct the continuous anterior channel. As a result, I retrograde filled his bladder with saline before removing the cystoscope and replacing a new 18 [place] urethral Sauceda catheter via his urethra into his bladder with ease. 15 cc of sterile water was placed in the balloon, and the catheter was allowed to drain. The drainage was clear to light pink, and it was connected to a leg bag. The patient was then taken out of the lithotomy position, awakened from general anesthesia, transferred to a stretcher, and then transferred to the recovery room in good condition. Complications: None Discharge disposition: He will be instructed to remove the catheter tomorrow morning at 7 AM sharp at home. I then requested he come by the urology clinic between 1 and 3 PM tomorrow for bladder scan postvoid residual assessment or to replace the catheter if necessary. He should continue the ciprofloxacin provided preoperatively until the course is completed. Additionally, follow-up should be established in about 1 month's time interval assessment of his symptoms assuming he is able to void successfully. If he is unable to void and a catheter is reinserted, recommend urodynamic evaluation if it has not been completed prior to follow-up. Regardless, I recommend repeat clinic based cystoscopic evaluation in about 3 months to reassess the erythema seen in the bladder diverticulum to ensure no sign of CIS since this was likely just catheter trauma. Findings and Operative Technique
[2025-01-06] MEDS ORDERED: PHENAZOPYRIDINE 100MG TAB PO ONE (09:09)
[2025-01-06] MEDS: PHENAZOPYRIDINE 100MG TAB PO ONE (09:12)
[2025-01-06 10:02] VITALS: BP 141/74; TEMP 97.4; O2SAT 97
== END 2025-01-06 10:05 | disposition home or self-care (01) ==
LOC: OR 06:22
PROVIDERS: ATTEND Urology
PROC: 0T7D8DZ Dilation of Urethra with Intraluminal Device, Via Natural or Artificial Opening Endoscopic (ICD-10-PCS; principal; 2025-01-06 07:30)
DX: N40.1 Benign prostatic hyperplasia with lower urinary tract symptoms (principal); R33.9 Retention of urine, unspecified; N13.8 Other obstructive and reflux uropathy
CPT/HCPCS: 87088; 85025; 87086; 80048; 36415; 85610; 87077; 87186; 71046; 52441; 52442 ×5; J2704; J2003; J2250; J3010; J2405; J0744; J7120; J1580